=== PATIENT | male | born 1995 | race Caucasian/White ===

== ENCOUNTER 2019-11-07 01:38 | Emergency (ER) | payer OTHER ==
[~2019-11-07] VITALS: Ht 170.2 cm; Wt 89.8 kg
[2019-11-07 01:57] VITALS: BP_SYST 150
--- NOTE | 2019-11-07 02:50 | NUR ---
Patient to ER bed 4 to gown for evaluation. Side rails up.
--- NOTE | 2019-11-07 02:55 | NUR ---
Dr. Arana bedside for pt eval
--- NOTE | 2019-11-07 03:00 | NUR ---
Pt BIB family to ED C/O Sprain to the Left ankle yesterday. Pt states that he mistepped and his foot went backwards. [facility], ankle was ELVIRA wrapped. +swelling to medial ankle. VSS no s/s of acute distress
[2019-11-07] MEDS ORDERED: IBUPROFEN 600 MG TABLET PO ONE (03:15)
[2019-11-07 03:46] VITALS: BP_SYST 150
--- NOTE | 2019-11-07 03:46 | NUR ---
Patient given written and verbal discharge instructions and verbalizes understanding. ER MD discussed with patient the results and treatment provided. Patient in stable condition. ID arm band removed. Rx of Ibuprofen given. Patient educated on pain management and to follow up with PMD. Pain Scale 0/10 Opportunity for questions provided and answered. Medication side effect fact sheet provided.
== END 2019-11-07 03:46 | disposition home or self-care (01) ==
LOC: SED 01:38
DX: S93.402A Sprain of unspecified ligament of left ankle, initial encounter (principal); X50.1XXA Overexertion from prolonged static or awkward postures, initial encounter; Y93.89 Activity, other specified; Y92.89 Other specified places as the place of occurrence of the external cause; Y99.8 Other external cause status
CPT/HCPCS: 99283